=== PATIENT | female | born 2000 | race Caucasian/White ===

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

== ENCOUNTER 2022-06-15 07:56 | Outpatient (CLI) | payer MEDICAID, SELFPAY ==
[2022-06-15 08:04] VITALS: BP 145/69; PULSE 90; RESP 16; TEMP 36.3; O2SAT 92
[2022-06-15] MEDS: 0.9% NaCl IVPB Med Flush (250 mL) 15 ML IV (08:17)
[2022-06-15] MEDS: 0.9% NaCl Peripheral Flush Adult/Peds IV (08:17)
[2022-06-15 09:03] VITALS: BP 131/65; PULSE 120; TEMP 36.5
== END 2022-06-15 07:57 | disposition home or self-care (01) ==
PROVIDERS: Referring Provider Obstetrics & Gynecology; Visit Provider Obstetrics & Gynecology
DX: O99.019 Anemia complicating pregnancy, unspecified trimester (principal); D50.9 Iron deficiency anemia, unspecified; K90.9 Intestinal malabsorption, unspecified; O99.611 Diseases of the digestive system complicating pregnancy, first trimester
CPT/HCPCS: 96365; J1756; J7050; A4216

== ENCOUNTER 2022-06-19 08:30 | Outpatient (CLI) | payer MEDICAID, SELFPAY ==
[2022-06-19 08:35] VITALS: BP 136/77; PULSE 117; RESP 16; TEMP 36.1; O2SAT 97
[2022-06-19] MEDS: 0.9% NaCl Peripheral Flush Adult/Peds IV (08:38)
[2022-06-19] MEDS: 0.9% NaCl IVPB Med Flush (250 mL) 15 ML IV (08:43)
[2022-06-19 09:29] VITALS: BP 133/77; PULSE 86
== END 2022-06-19 08:31 | disposition home or self-care (01) ==
LOC: MEDOUTP 08:30
PROVIDERS: Referring Provider Obstetrics & Gynecology; Visit Provider Obstetrics & Gynecology
DX: O99.019 Anemia complicating pregnancy, unspecified trimester (principal); K90.9 Intestinal malabsorption, unspecified; D50.9 Iron deficiency anemia, unspecified; O99.611 Diseases of the digestive system complicating pregnancy, first trimester
CPT/HCPCS: 96365; J1756; J7050; A4216

== ENCOUNTER 2022-06-21 08:35 | Outpatient (CLI) | payer MEDICAID, SELFPAY ==
[2022-06-21 08:39] VITALS: BP 127/71; PULSE 95; RESP 16; TEMP 36.4; O2SAT 96
[2022-06-21] MEDS: 0.9% NaCl Peripheral Flush Adult/Peds IV (08:45)
[2022-06-21] MEDS: 0.9% NaCl IVPB Med Flush (250 mL) 15 ML IV (08:48)
[2022-06-21 09:36] VITALS: BP 127/77; PULSE 108
== END 2022-06-21 08:36 | disposition home or self-care (01) ==
LOC: MEDOUTP 08:35
PROVIDERS: Referring Provider Obstetrics & Gynecology; Visit Provider Obstetrics & Gynecology
DX: O99.019 Anemia complicating pregnancy, unspecified trimester (principal); D50.9 Iron deficiency anemia, unspecified
CPT/HCPCS: 96365; J3490; J1756; J7050; A4216

== ENCOUNTER 2022-06-23 18:45 | Inpatient (IN) | payer MEDICAID, SELFPAY ==
[2022-06-23] VITALS (57 sets, daily range): BP systolic 111–174; BP diastolic 57–93; PULSE 94–141; TEMP 36.7–38.1; O2SAT 72–100; BMI 44.6
[2022-06-23] MEDS: Lactated Ringers 1,000 ML 999 ML IV (19:05)
[2022-06-23] MEDS: Acetaminophen 500 MG Tablet PO (19:21)
[2022-06-23 19:24] LABS: Absolute Lymphocyte Count 1.21 X10^3/uL (0.83-4.51); Absolute Neutrophil Count 20.3 X10^3/uL (2.0-7.7); Basophil# 0.07 X10^3/uL; Basophil% 0.3 % (0-1); Eosinophil# 0.01 X10^3/uL; Hematocrit 35.5 % (37-47); Hemoglobin 10.9 g/dL (12.0-15.0); Lymphocyte # 1.21 X10^3/ul (0.83-4.51); Lymphocyte % 5.2 % (19-41); Mean Corp Hgb Conc 30.7 g/dL (32-36); Mean Corpuscular Hgb 28.4 pg (27.0-32.0); Mean Corpuscular Volume 92.4 fL (81-99); Mean Platelet Vol. 11.8 fl (6.2-12.0); Monocyte# 1.67 X10^3/uL; Monocyte% 7.1 % (0-10); NRBC Flagged by Analyzer 0 % (0-5); Neutrophil # 20.28 X10^3/uL (2.7-7.7); Neutrophil % 86.4 % (47-70); POSITIVE COUNT YES; POSITIVE DIFFERENTIAL YES; Platelet Count 191 K/mm3 (150-450); RBC Distribution Width CV 17.9 % (11.6-14.6); RBC Distribution Width SD 58.5 fl (35.1-43.9); Red Blood Count 3.84 M/mm3 (4.2-5.4); White Blood Count 23.5 K/mm3 (4.4-11.0)
[2022-06-23 19:25] LABS: Differential Indicated SCAN CRITERIA MET
--- NOTE | 2022-06-23 19:45 | PN.OBGYN_ITS ---
Subjective Subjective Patient painful with ctxs Objective Data Objective Data Vital Signs: Vital Signs Temp Pulse BP Pulse Ox 99.9 F H 114 H 139/70 H 100 06/23/22 19:37 06/23/22 19:37 06/23/22 19:37 06/23/22 19:37 Weight: 260 lb 2.327 oz Body Mass Index (BMI) 44.6 Lab / Micro Data Result Diagrams: 06/23/22 19:05 Labs: Laboratory Results - last 24 hr 06/23/22 19:05: WBC 23.5 H, RBC 3.84 L, Hgb 10.9 L, Hct 35.5 L, MCV 92.4, MCH 28.4, MCHC 30.7 L, RDW Std Deviation 58.5 H, RDW Coeff of Angle 17.9 H, Plt Count 191, MPV 11.8, Immature Gran % (Auto) 1.000 H, Neut % (Auto) 86.4 H, Lymph % (Auto) 5.2 L, [place] % (Auto) 7.1, Eos % (Auto) 0.0, Baso % (Auto) 0.3, Absolute Neuts (auto) 20.3 H, Absolute Lymphs (auto) 1.21, Nucleated RBC % 0 Physical Exam Narrative: cvx - 5/80/-2, AROM clear fluid NST FHR Rate Baby A Baseline: 170 Variability:: Minimal and Moderate Accelerations:: 15 x 15 (in past 10 minutes) Decelerations:: Variable Uterine Activity:: Q2 min Assessment & Plan (1) Active labor at term: PLAN: Plan AROM clear fluid. FSE placed.
[2022-06-23] MEDS: LACTATED RINGERS 500 ML 999 ML IV (19:50)
[2022-06-23 19:57] LABS: Differential Comment SCANNED
[2022-06-23] MEDS: fentaNYL-bupivacaine (epidural) 100 ML BAG EPIDURAL (20:15)
[2022-06-23] MEDS: Oxytocin 15 Units/NS 250ml 15 UNITS/250 ML IV.SOLN 83 UNITS IV (21:01)
[2022-06-23] MEDS: Oxytocin 10 UNITS/ML Vial IM (21:01)
[2022-06-23] MEDS: Lidocaine 1% (20 ml mdv) 20 ML Vial INFILT (21:10)
--- NOTE | 2022-06-23 21:20 | PCM.HP.OB ---
HPI - General General Date of Admission: 06/23/22 Date of Service: 06/23/22 HPI Narrative PARVEZ CAMACHO, is a 22 F @ 39+3 weeks who presents c/o contractions. On arrival tachycardia, maternal low grade fever and pt c/o body aches. Pt reports ctx since around 4pm. Pt denies sick contact at home. No LOF or VB. no other concerns. PFSH PFSH Home Medications ferrous sulfate 325 mg (65 mg iron) tablet 325 mg PO BID Check with primary doctor 11/25/18 [History Last Taken 11/24/18 22:00 1 tab] vits,calcium no.78-iron fumarate-folic acid 29 mg-1 mg tablet 1 tab PO DAILY 11/25/18 [History Last Taken 06/22/22 22:00] ibuprofen 600 mg tablet 600 mg PO Q6H PRN PRN Pain Score 1-3/10 #30 tabs 11/27/18 [Rx Last Taken Unknown] Allergy/AdvReac Type Severity Reaction Status Date / Time No Known Allergies Allergy Verified 06/23/22 19:25 Social History Smoking Status: Never smoker History Elective abortions Hx Para 1 Spontaneous abortions Hx # Term Pregnancies Ectopic pregnancies Hx # Pregnancies Multiple births # of living children Vital Signs Vital Signs Vital Signs: 06/23/22 18:27 06/23/22 18:27 06/23/22 18:27 Temperature Temperature Source Pulse Rate 110 H Blood Pressure 126/75 H BP Systolic 126 BP Diastolic 75 Pulse Ox 100 06/23/22 19:37 06/23/22 19:37 06/23/22 19:37 Temperature Temperature Source Temporal Pulse Rate 114 H Blood Pressure 139/70 H BP Systolic 139 BP Diastolic 70 Pulse Ox 06/23/22 19:37 06/23/22 19:37 06/23/22 19:51 Temperature 99.9 F H Temperature Source Pulse Rate 114 H Blood Pressure BP Systolic BP Diastolic Pulse Ox 100 06/23/22 19:51 06/23/22 19:56 06/23/22 19:56 Temperature Temperature Source Pulse Rate 115 H Blood Pressure 138/93 H BP Systolic 138 BP Diastolic 93 Pulse Ox 100 06/23/22 19:56 06/23/22 20:01 06/23/22 20:01 Temperature Temperature Source Pulse Rate 126 H Blood Pressure BP Systolic BP Diastolic Pulse Ox 100 98 06/23/22 20:03 06/23/22 20:03 06/23/22 20:06 Temperature Temperature Source Pulse Rate 121 H 119 H Blood Pressure 137/79 H BP Systolic 137 BP Diastolic 79 Pulse Ox 06/23/22 20:06 06/23/22 20:07 06/23/22 20:07 Temperature Temperature Source Pulse Rate 122 H Blood Pressure 140/71 H BP Systolic 140 BP Diastolic 71 Pulse Ox 72 06/23/22 20:09 06/23/22 20:09 06/23/22 20:13 Temperature Temperature Source Pulse Rate 123 H Blood Pressure 111/57 L BP Systolic 111 BP Diastolic 57 Pulse Ox 85 06/23/22 20:13 06/23/22 20:12 06/23/22 20:16 Temperature Temperature Source Pulse Rate 118 H Blood Pressure 119/57 L BP Systolic 119 BP Diastolic 57 Pulse Ox 98 06/23/22 20:16 06/23/22 20:17 06/23/22 20:17 Temperature Temperature Source Pulse Rate 115 H 121 H Blood Pressure BP Systolic BP Diastolic Pulse Ox 100 06/23/22 18:27 06/23/22 18:27 06/23/22 20:22 Temperature 100.5 F H Temperature Source Tympanic Pulse Rate Blood Pressure 117/57 L BP Systolic 117 BP Diastolic 57 Pulse Ox 06/23/22 20:22 06/23/22 18:28 06/23/22 20:22 Temperature Temperature Source Oral Pulse Rate 125 H 125 H Blood Pressure BP Systolic BP Diastolic Pulse Ox 06/23/22 20:22 06/23/22 18:28 06/23/22 20:27 Temperature 99.9 F H Temperature Source Pulse Rate Blood Pressure 137/71 H BP Systolic 137 BP Diastolic 71 Pulse Ox 99 06/23/22 20:27 06/23/22 20:27 06/23/22 20:27 Temperature Temperature Source Pulse Rate 111 H 116 H Blood Pressure BP Systolic BP Diastolic Pulse Ox 100 06/23/22 20:31 06/23/22 20:31 06/23/22 20:32 Temperature Temperature Source Pulse Rate 116 H 114 H Blood Pressure 141/74 H BP Systolic 141 BP Diastolic 74 Pulse Ox 06/23/22 20:32 06/23/22 20:34 06/23/22 20:34 Temperature Temperature Source Pulse Rate 118 H Blood Pressure BP Systolic BP Diastolic Pulse Ox 100 90 06/23/22 20:37 06/23/22 20:37 06/23/22 20:37 Temperature Temperature Source Pulse Rate 115 H 118 H Blood Pressure 142/68 H BP Systolic 142 BP Diastolic 68 Pulse Ox 06/23/22 20:37 06/23/22 20:42 06/23/22 20:42 Temperature Temperature Source Pulse Rate 125 H Blood Pressure 155/68 H BP Systolic 155 BP Diastolic 68 Pulse Ox 100 06/23/22 20:42 06/23/22 20:42 06/23/22 20:47 Temperature Temperature Source Pulse Rate 127 H Blood Pressure 132/60 H BP Systolic 132 BP Diastolic 60 Pulse Ox 98 06/23/22 20:47 06/23/22 20:47 Temperature Temperature Source Pulse Rate 141 H Blood Pressure BP Systolic BP Diastolic Pulse Ox 100 Weight Weight: 118 kg Body Mass Index (BMI) 44.6 Physical Exam Narrative Per Dr. Mckeon non tender abdomen and AROM was Clear fluid at admission. No odor to Amniotic fluid. Const alert and oriented x3 General Appearance: cooperative HEENT normocephalic GI GI Narrative: Gravid, non tender to palpation. OB / External & Speculum: external exam normal Extremity normal to inspection Skin no rashes or lesions noted Neuro oriented x3 and CN's II-XII intact bilaterally Psych Appearance: grossly normal Labs Labs Labs: Blood Type O POSITIVE Antibody Screen NEGATIVE Hct 35.5 % (37-47) L Hgb 10.9 g/dL (12.0-15.0) L Rhogam given: No GBS negative Assessment & Plan (1) Active labor at term: (2) tachycardia: (3) Leukocytosis: (4) 39 weeks gestation of : (5) Obesity affecting : (6) LGA (large for gestational age) fetus: PLAN: Plan Admit to L&D [facility] FHR/TOCO Epidural if requested for pain Monitor VS Anticipate AROM performed by DR. Mckeon Fluid bolus suspect viral illness
--- NOTE | 2022-06-23 21:26 | OP.PCM_ITS ---
Vaginal Delivery Maternal Presentation Maternal Presentation: Active Labor Operative Information Date of Procedure: 06/23/22 Pre-Operative Diagnosis: 39 weeks, active labor, tachycardia, Maternal leukocytosis, Obesity in Post-Operative Diagnosis: Live female Surgery / Procedure Performed: Spontaneous Vaginal Delivery Type of Anesthesia: Epidural Special Medications: 1% lidocaine Estimated Blood Loss: 150 Time of Delivery: 20:58 Findings Description of Procedure: Progressed to fully dilated. Good maternal pushing efforts delivered the 's head. Gentle downward traction delivered the anterior shoulder followed by the posterior shoulder followed by the rest 's body. The was then placed on the mother's abdomen for immediate skin to skin. Short umbilical cord appreciated. After delayed cord clamping was performed cord was clamped and cut and the was placed on the mother's chest. Apgars were 8 and 8 was vigorous but required further evaluation by biomedical engineering aide. IM Pitocin and IV Pitocin were given placenta was then delivered without complication and intact. Epidural was not adequate at this time 1% lidocaine was injected at the perineum 10 cc. She had a second-degree perineal laceration which was repaired using 2-0 Vicryl. Excellent hemostasis was appreciated. Presentation: Vertex Amniotic Membrane Rupture Type: Artificial Amniotic Fluid Description: Clear Placental Delivery Description: Expressed Placenta Disposition: Routine to Lab Specimen(s) Removed: Placenta Cord Vessel Description: 3 Vessels Cord Entanglement: None A Gender: Female (1 minute): 8 (5 minute): 8 Delayed Cord Clamping: Yes Post Vaginal Delivery Medications Given After Delivery: IV Pitocin and IM Pitocin Episiotomy Description: None Laceration: Perineal Extension/lac and 2nd degree Complication Complications: None
[2022-06-24 04:34] VITALS: BP 118/64; PULSE 83; RESP 14; TEMP 36.7
[2022-06-24 04:48] LABS: Hematocrit 30.9 % (37-47); Hemoglobin 9.9 g/dL (12.0-15.0); Mean Corpuscular Hgb 28.5 pg (27.0-32.0); Mean Platelet Vol. 11.2 fl (6.2-12.0); Platelet Count 205 K/mm3 (150-450); RBC Distribution Width CV 17.5 % (11.6-14.6); RBC Distribution Width SD 55.4 fl (35.1-43.9); Red Blood Count 3.47 M/mm3 (4.2-5.4)
[2022-06-24 06:18] LABS: Syphilis Antibodies Non-reactive
--- NOTE | 2022-06-24 08:25 | PN_ITS ---
Subjective Subjective patient seen at bedside, doing well. Patient reports good pain control. lochia mild. denies any abdominal pain or foul vaginal discharge. still with some body aches but nothing more severe then yesterday. no other symptoms. Objective Data Objective Data Vital Signs: Vital Signs Temp Pulse Resp BP Pulse Ox O2 Del Method 98.0 F 83 14 118/64 95 Room Air 06/24/22 04:34 06/24/22 04:34 06/24/22 04:34 06/24/22 04:34 06/23/22 23:06 06/24/22 04:34 Oxygen Delivery Method Room Air Weight: 118 kg Body Mass Index (BMI) 44.6 Intake & Output: Intake and Output for Last 24 Hours 06/22/22 06/23/22 06/24/22 23:59 23:59 23:59 Intake Total 1500 / 1500 250 / 250 Output Total 450 / 450 Balance 1050 / 1050 250 / 250 Lab / Micro Data Result Diagrams: 06/24/22 04:40 Labs: Laboratory Results - last 24 hr 06/23/22 19:05: WBC 23.5 H, RBC 3.84 L, Hgb 10.9 L, Hct 35.5 L, MCV 92.4, MCH 28.4, MCHC 30.7 L, RDW Std Deviation 58.5 H, RDW Coeff of Angle 17.9 H, Plt Count 191, MPV 11.8, Immature Gran % (Auto) 1.000 H, Neut % (Auto) 86.4 H, Lymph % (Auto) 5.2 L, [place] % (Auto) 7.1, Eos % (Auto) 0.0, Baso % (Auto) 0.3, Absolute Neuts (auto) 20.3 H, Absolute Lymphs (auto) 1.21, Nucleated RBC % 0, Differential Comment SCANNED, Diff Path Review June06/23/22 19:05: Blood Type O POSITIVE, Antibody Screen NEGATIVE 06/24/22 04:40: WBC 26.0 H, RBC 3.47 L, Hgb 9.9 L, Hct 30.9 L, MCV 89.0, MCH 28.5, MCHC 32.0, RDW Std Deviation 55.4 H, RDW Coeff of Angle 17.5 H, Plt Count 205, MPV 11.2 06/24/22 04:40: Syphilis Total Ab Non-reactive Physical Exam Const alert and oriented x3 General Appearance: cooperative HEENT normocephalic Neck General: normal visual inspection GI soft to palpation and non-distended GI Narrative: Fundus firm Extremity normal to inspection and no calf tenderness Skin no rashes or lesions noted Neuro oriented x3 and CN's II-XII intact bilaterally Psych mental status grossly normal Assessment & Plan Assessment/Plan (1) Vaginal delivery: (2) Obstetric vaginal laceration with second degree perineal laceration: (3) Leukocytosis: PLAN: Plan PPD#1 , Doing well Routine care pain mgmt ambulation repeat cbc in am
[2022-06-24 09:06] VITALS: BP 140/88; PULSE 97; RESP 17; TEMP 36.4
[2022-06-24 13:20] VITALS: BP 144/85; PULSE 110; RESP 18; TEMP 36.6
[2022-06-24 15:54] VITALS: BP 146/82; PULSE 93; RESP 18; TEMP 36.3
[2022-06-24 19:55] VITALS: BP 143/89; PULSE 85; RESP 15; TEMP 36.4; O2SAT 97
[2022-06-24] MEDS: Senna/Docusate Sodium 1 Tablet PO (23:53)
[2022-06-25 01:54] VITALS: BP 127/80; PULSE 87; RESP 15; TEMP 36.9
[2022-06-25 06:10] LABS: Absolute Lymphocyte Count 3.52 X10^3/uL (0.83-4.51); Absolute Neutrophil Count 10.5 X10^3/uL (2.0-7.7); Basophil# 0.07 X10^3/uL; Basophil% 0.5 % (0-1); Eosinophils% 0.6 % (0-5); Hematocrit 32.3 % (37-47); Hemoglobin 9.9 g/dL (12.0-15.0); Lymphocyte # 3.52 X10^3/ul (0.83-4.51); Lymphocyte % 22.8 % (19-41); Mean Corp Hgb Conc 30.7 g/dL (32-36); Mean Corpuscular Hgb 28.4 pg (27.0-32.0); Mean Corpuscular Volume 92.6 fL (81-99); Mean Platelet Vol. 11.2 fl (6.2-12.0); Monocyte% 7.1 % (0-10); NRBC Flagged by Analyzer 0 % (0-5); Neutrophil # 10.45 X10^3/uL (2.7-7.7); Neutrophil % 67.5 % (47-70); Platelet Count 204 K/mm3 (150-450); RBC Distribution Width SD 59.7 fl (35.1-43.9); Red Blood Count 3.49 M/mm3 (4.2-5.4); White Blood Count 15.5 K/mm3 (4.4-11.0)
[2022-06-25 08:01] VITALS: BP 140/71; PULSE 91; RESP 16; TEMP 36.9
--- NOTE | 2022-06-25 08:13 | PN_ITS ---
Subjective Subjective patient seen at bedside, doing well. Patient reports good pain control. lochia mild. denies [place], visual changes or epigastric pain. Objective Data Objective Data Vital Signs: Vital Signs Temp Pulse Resp BP Pulse Ox O2 Del Method 98.5 F 91 16 140/71 H 97 Room Air 06/25/22 08:01 06/25/22 08:01 06/25/22 08:01 06/25/22 08:01 06/24/22 19:55 06/25/22 08:01 Oxygen Delivery Method Room Air Weight: 118 kg Body Mass Index (BMI) 44.6 Intake & Output: Intake and Output for Last 24 Hours 06/23/22 06/24/22 06/25/22 23:59 23:59 23:59 Intake Total 1500 / 1500 250 / 250 Output Total 450 / 450 Balance 1050 / 1050 250 / 250 Lab / Micro Data Result Diagrams: 06/25/22 05:45 Labs: Laboratory Results - last 24 hr 06/25/22 05:45: WBC 15.5 H, RBC 3.49 L, Hgb 9.9 L, Hct 32.3 L, MCV 92.6, MCH 28.4, MCHC 30.7 L, RDW Std Deviation 59.7 H, RDW Coeff of Angle 18.0 H, Plt Count 204, MPV 11.2, Immature Gran % (Auto) 1.500 H, Neut % (Auto) 67.5, Lymph % (Auto) 22.8, [place] % (Auto) 7.1, Eos % (Auto) 0.6, Baso % (Auto) 0.5, Absolute Neuts (auto) 10.5 H, Absolute Lymphs (auto) 3.52, Nucleated RBC % 0 Physical Exam Const alert and oriented x3 General Appearance: cooperative HEENT normocephalic Neck General: normal visual inspection GI soft to palpation and non-distended GI Narrative: Fundus firm Extremity normal to inspection and no calf tenderness Skin no rashes or lesions noted Neuro oriented x3 and CN's II-XII intact bilaterally Psych mental status grossly normal Assessment & Plan Assessment/Plan (1) Obstetric vaginal laceration with second degree perineal laceration: (2) Vaginal delivery: (3) hypertension: PLAN: Plan PPD#2 , Doing well Routine care pain mgmt ambulation BP mildly elevated 140s/80s asymptomatic. discussed will need follow up in office 48-72hrs for BP check. S/SX of PRE E reviewed with patient dc to [facility] status reviewed - baby still in SCN WBC trending down
--- NOTE | 2022-06-25 08:16 | DCINST_ITS ---
Discharge Instructions Procedure Vaginal Delivery Diet Discharge Diet: No restrictions Activity May resume sexual activity in: 6-8 weeks Dressing / Incision Call your doctor if you observe: Fever of 101 or Higher, Inability to urinate, Using more than 1 pad per hour and Uncontrolled pain Follow Up Care Please Follow Up With: Rachel Esteves MD When: 1-2 weeks post and again at 6 weeks post . [phone] Test Results: Test results from this visit will be discussed in further detail at your follow- up appointment, if applicable. Discharge Plan Admission Admit Date/Time: 06/23/22 18:45 Attending Provider: Rachel Esteves Primary Care Provider: Care Physician,Evelin Primary Discharge Orders/Prescriptions Prescriptions: New acetaminophen 500 mg Tablet 1,000 mg PO Q6H PRN PRN (Reason: Pain 1-10 Or Fever) Qty: 0 0RF Continued ferrous sulfate 325 MG tablet 325 mg PO BID vit,[id number] 1 TABLET tablet 1 tab PO DAILY ibuprofen 600 MG tablet 600 mg PO Q6H PRN PRN (Reason: Pain Score 1-3/10) Qty: 30 0RF Referrals / Follow Up: Care Physician,Evelin Primary [Primary Care Provider] - Disposition Disposition (needs filled in before D[facility]C [facility]
[2022-06-25 15:30] VITALS: BP 136/81; PULSE 83; RESP 18; TEMP 36.5
[2022-06-27 09:48] LABS: Pathologist Review Reviewed
== END 2022-06-25 18:05 | disposition designated cancer center or children's hospital (05) | DRG 560 ==
LOC: WPOUT 18:49 → WP 18:49
PROVIDERS: Admitting Provider Obstetrics & Gynecology; Referring Provider Obstetrics & Gynecology; Visit Provider Obstetrics & Gynecology
DX: O76 Abnormality in fetal heart rate and rhythm complicating labor and delivery (principal); Z37.0 Single live birth; O99.12 Other diseases of the blood and blood-forming organs and certain disorders involving the immune mechanism complicating childbirth; D72.829 Elevated white blood cell count, unspecified; D50.9 Iron deficiency anemia, unspecified; Z3A.39 39 weeks gestation of pregnancy; O70.1 Second degree perineal laceration during delivery; O99.214 Obesity complicating childbirth; O99.02 Anemia complicating childbirth
CPT/HCPCS: 59025; 59050; 85025; 85027; 86780; 86850; 86900; 86901; 99221; J1756; J7050; J7120; A4216; G0378